=== PATIENT | male | born 1960 | race African-American/Black ===

== ENCOUNTER 2019-10-23 01:46 | Emergency (ER) | payer BC ==
[~2019-10-23] VITALS: Ht 172.7 cm; Wt 86.2 kg
[2019-10-23] MEDS ORDERED: HYPERTENSION MED (01:52)
[2019-10-23] MEDS ORDERED: HIGH CHOLESTEROL MED (01:52)
[2019-10-23] MEDS ORDERED: COZAAR 25 MG TA25 M2 PO (01:53)
[2019-10-23] MEDS ORDERED: LISINOPRIL PO (01:54)
[2019-10-23 02:45] LABS: BASOPHILS 1.1 % (0.0-2.0); EOSINOPHILS 1.8 % (0.0-3.0); HEMOGLOBIN 14.1 gm/dL (14.0-18.0); LYMPHOCYTES 29.9 % (24.0-44.0); MCHC 32.8 g/dL (28.0-37.0); MCV 85.5 fL (80.0-100.0); MONOCYTES 8.5 % (1.0-8.0); PLATELET COUNT 251 thou/uL (150-400); POLYS 58.7 % (36.0-66.0); RBC 5.03 mil/uL (4.50-6.00); RDW 14.3 % (10.5-14.5); WBC 6.8 thou/uL (4.0-11.0)
[2019-10-23 02:47] LABS: ANION GAP 10 mmol/L (7-16); BUN 13 mg/dL (7-18); CHLORIDE 99 mmol/L (98-107); CO2 27 mmol/L (21-32); CREATININE 1.3 mg/dL (0.7-1.3); GLUCOSE 97 mg/dL (74-106); POTASSIUM 3.8 mmol/L (3.5-5.1); SODIUM 136 mmol/L (136-145)
[2019-10-23 02:57] LABS: ALBUMIN 4.2 g/dL (3.4-5.0); DIRECT BILIRUBIN < 0.1 mg/dL (<0.1-0.2); SGOT 27 U/L (15-37); SGPT 39 U/L (30-65); TOTAL BILIRUBIN 0.3 mg/dL (<0.1-1.0); TOTAL PROTEIN 7.9 g/dL (6.4-8.2); TROPONIN-I <0.06 ng/mL (<0.06)
[2019-10-23 06:31] VITALS: BP 136/79
--- NOTE | 2019-10-23 08:53 | EKG ---
[facility] [place] [address] ELECTROCARDIOGRAM REPORT Name: ALEJO ABARCA Room #: DEP [facility]#: [id number] Admission: 10/23/19 Attend Phys: Discharge: 10/23/19 Date of : 64 Report #: [id number] THIS REPORT FOR: cc: FAM - No family physician/PCP FAM - No family physician/PCP Sami Steen MD ~ THIS REPORT FOR: //name// [facility] ED Test Date: 2019-10-23 Test Time: 02:07:54 Pat Name: ALEJO ABARCA Department: Room: Gender: Cardiopulmonary Technologist: ISAIAH : 1960 Requested By: Mady Melton Order Number: [id number] MD: Sami Steen Measurements Intervals [place] Rate: 64 P: 15 [place]: 170 QRS: 36 QRSD: 66 T: 6 QT: 392 QTc: 405 Interpretive Statements Sinus rhythm Anteroseptal infarct, old No previous ECG available for comparison Electronically Signed On 10-23-2019 8:52:56 [employer] by Sami Steen [email or web address] <ELECTRONICALLY SIGNED> By: Sami Steen MD 10/23/19 0852 6 6 Sami Steen MD /TONO
== END 2019-10-23 06:32 | disposition home or self-care (01) ==
LOC: ER 01:46
PROVIDERS: Emergency Medicine
DX: S00.03XA Contusion of scalp, initial encounter (principal); R55 Syncope and collapse; I10 Essential (primary) hypertension; E78.00 Pure hypercholesterolemia, unspecified; F17.210 Nicotine dependence, cigarettes, uncomplicated; W07.XXXA Fall from chair, initial encounter; Y93.89 Activity, other specified; Y92.89 Other specified places as the place of occurrence of the external cause; Y99.8 Other external cause status